=== PATIENT | male | born 1960 | race Caucasian/White ===

== ENCOUNTER 2020-02-24 21:18 | Inpatient (IN) | payer OTHER ==
[~2020-02-24] VITALS: Ht 177.8 cm; Wt 80.2 kg
[2020-02-24] MEDS ORDERED: LISI10TA15 PO (22:00)
[2020-02-24] MEDS ORDERED: OMEP40CA97 PO (22:00)
[2020-02-24] MEDS ORDERED: PROTPAK PO (22:00)
[2020-02-24] MEDS ORDERED: LEVOFLOXACIN (22:00)
[2020-02-24 22:05] LABS: BASO # 0.1 10^3/uL (0.0-0.2); BASO % 0.6 % (0.0-1.0); EOS # 0.2 10^3/uL (0.0-0.5); EOS % 1.8 % (0.0-3.0); HEMATOCRIT 58.1 % (42.0-52.0); HEMOGLOBIN 19.2 g/dl (13.5-17.5); LYMPH # 2.3 10^3/uL (1.5-5.0); LYMPH % 17.3 % (24.0-44.0); MEAN CORPUSCULAR VOLUME 84.8 fl (80.0-96.0); MONO % 7.7 % (0.0-5.0); NEUTROPHILS # 9.2 10^3/uL (1.5-8.5); NEUTROPHILS % 70.9 % (36.0-66.0); PLATELET COUNT, AUTOMATED 324 10^3/uL (150-450); RED BLOOD COUNT 6.85 10^6/uL (4.30-6.10)
[2020-02-24] MEDS ORDERED: NS 1,000 ML IV ONE (22:45)
[2020-02-24 22:46] LABS: CALCIUM LEVEL 8.8 MG/DL (8.5-10.1); CK-MB VALUE MASS 2.4 NG/ML (<3.6); CREATININE FOR GFR 1.95 MG/DL (0.70-1.30); GLOMERULAR FILTRATION RATE 37.7 (>56); MB/CK RELATIVE INDEX 4.71 (< OR =4); POTASSIUM SERUM 4.4 MEQ/L (3.5-5.1); THYROID STIMULATING HORMONE 3.42 uIU/ML (0.358-3.740); TROPONIN I 0.03 NG/ML (< 0.10)
--- NOTE | 2020-02-25 00:58 | REPVR ---
PROCEDURE INFORMATION: Exam: CT Abdomen And Pelvis Without Contrast Exam date and time: 02/25/2020 12:20 AM Age: 59 years old Clinical indication: Abdominal pain; Generalized; Additional info: Dx of pyelo TECHNIQUE: Imaging protocol: Computed tomography of the abdomen and pelvis without contrast. Radiation optimization: All CT scans at this facility use at least one of these dose optimization techniques: automated exposure control; mA and/or kV adjustment per patient size (includes targeted exams where dose is matched to clinical indication); or iterative reconstruction. COMPARISON: No relevant prior studies available. FINDINGS: Lungs: Lung nodule in the lateral basal right lower lobe measuring 4 mm. (Series 201, image 2). Lung nodule in the lateral basal left lower lobe measuring 5 mm. Series 201, image 2. Lung nodule in the lateral basal left lower lobe measuring 5 mm. (Series 201, image 13). Liver: Normal. No mass. Gallbladder and bile ducts: Status post cholecystectomy. No biliary ductal dilatation. Pancreas: Normal. No ductal dilation. Spleen: Normal. No splenomegaly. Adrenal glands: Right adrenal gland is unremarkable. Low-density nodule in the left adrenal gland measuring 1.4 x 1.3 cm. Kidneys and ureters: Normal. No hydronephrosis. No renal stones. Stomach and bowel: Moderate stool in the colon. No abnormal bowel dilatation. No abnormal bowel wall thickening. Negative for colonic diverticulitis. Appendix: Appendix is normal. Intraperitoneal space: Unremarkable. No free air. No significant fluid collection. Vasculature: Mild calcified atherosclerotic disease. No aortic aneurysm. Lymph nodes: No enlarged lymph nodes. Multiple small mesenteric nodes. Urinary bladder: Unremarkable as visualized. Reproductive: Prostate is normal in size. Bones/joints: No acute fracture. Moderate degenerative spine. Soft tissues: Unremarkable. IMPRESSION: 1. Kidneys are unremarkable. 2. Multiple lung nodules. For patients at low risk (minimal or absent history of smoking and of other known risk factors), no routine follow-up is indicated. For patients at high risk (history of smoking or of other known risk factors), consider optional CT Chest at 12 months. (Reference: Curt) 3. Low-density nodule in the left adrenal gland. Consistent with adenoma. No follow-up is necessary. COMMENTS: Consistent with the [employer]'s Incidental Findings Committee white paper (J Am Adriana Radiol 2017): For any incidental adrenal lesion greater than 1 cm but less than 4 cm classified in this report as benign, likely benign, or containing fat (including classification as an adenoma or myelolipoma), no follow-up imaging is recommended per consensus recommendations based on imaging criteria. Further lab evaluation could be pursued if warranted based on clinical findings. REFERENCES: Curt Mac, et al. Guidelines for Management of Incidental Pulmonary Nodules Detected on CT Images: From the Fleischner Society 2017. Radiology. 2017;284(1):228-243. Electronically signed by: Hyun Garcia On 02/25/2020 00:58:17 AM
[2020-02-25] MEDS ORDERED: NS 1,000 ML IV ONE ×2 (01:45→10:00)
[2020-02-25] MEDS ORDERED: MOM 30ML SUSPENSION UDC PO PRN (02:30)
[2020-02-25] MEDS ORDERED: ACETAMINOPHEN TAB 650MG DOSE (2X325MG) PO PRN (02:30)
[2020-02-25] MEDS ORDERED: PANT20TA6 PO (02:31)
[2020-02-25] MEDS ORDERED: LISI20TA35 PO (02:31)
[2020-02-25] MEDS ORDERED: LIDO1PAD TOP (02:38)
[2020-02-25] MEDS ORDERED: LEVO750T13 PO (02:38)
[2020-02-25] MEDS ORDERED: NICOTINE 21MG/24HR 1 EA TRANSDERMAL TD ONE (02:45)
[2020-02-25] MEDS ORDERED: hydroCHLOROthiazide 12.5 MG CAPSULE PO SCH (02:46)
--- NOTE | 2020-02-25 02:49 | HPEPDOC ---
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 This prompted his boom supervisor to ask him to come to the ED. In the ED when I saw him his symptoms had resolved. He tells me he had not felt like he was about to pass out like this in the past. He endorses to me that on February 19 he was seen at [facility] where he was diagnosed with pyelonephritis and was discharged home from the ED with by mouth Levaquin today is day #5 of treatment. At that time he was feeling feverish at home with some chills and had exquisite CVA tenderness. He feels that his fevers have resolved but she'll remain in his CVA tenderness has improved with time. He tries to stay hydrated but also drinks coffee daily. In the ED orthostats were positive. Received 2 L IV fluid bolus. PAST MEDICAL HISTORY: HTN PAST SURGICAL HISTORY: Laparoscopic cholecystectomy 2013 SOCIAL HISTORY: Denies alcohol use Daily smoker 1 pack per day for about 40 years Denies illicit drug use FAMILY HISTORY: Parents also required laparoscopic cholecystectomy around the same age as him. Rest reviewed and noncontributory ALLERGIES: Please see below. REVIEW OF SYSTEMS: Constitutional: No sweating or weight loss Eyes: No eye pain or acute blurred vision HENT: Developed a headache this evening Cadiovascular: No Chest pain or palpitations Pulm: No SOB or cough Gastrointestinal: Was feeling nauseous prior but did not vomit this has now reso lved, no abdominal pain. Genitourinary: No dysuria or hematuria Musculoskeletal: Still having CVA discomfort. No joint pain Skin: No rash or jaundice Neurological: Feeling lightheaded HOME MEDICATIONS: Please see below. PHYSICAL EXAMINATION: Constitutional: Awake and alert, in no apparent distress ENT: Sclera are clear. Mucosa is moist. Respiratory: Lungs CTA bilaterally. No respiratory distress. No use of accessory muscles. Cardiovascular: RRR S1 and S2 are normal, no murmur Gastrointestinal: Abdomen is soft, non distended, non tender, BS present. Musculoskeletal: No edema. No joint deformities. RUE 5/5, LUE 5/5, BLE 5/5. CVA tenderness R>L Neurologic: No focal neurological deficit. Mental Status: A&O x3, normal affect Skin: Warm, dry LABORATORY DATA: See below. IMAGING: CT Abdomen And Pelvis Without Contrast Exam date and time: 02/25/2020 12:20 AM IMPRESSION: 1. Kidneys are unremarkable. 2. Multiple lung nodules. For patients at low risk (minimal or absent history of smoking and of other known risk factors), no routine follow-up is indicated. For patients at high risk (history of smoking or of other known risk factors), consider optional CT Chest at 12 months. (Reference: Curt) 3. Low-density nodule in the left adrenal gland. Consistent with adenoma. No follow-up is necessary. MICROBIOLOGY: Please see below. Urine culture pending. Blood culture ordered. ASSESSMENT/PLAN 59M PMHx HTN, serious presyncope at work likely due to dehydration. Has recent diagnosis of pyelonephritis did not complete treatment. Found to have KYLIE. Admitted to medical unit for further management. # Pyelonephritis: Leukocytosis plus CVA tenderness and hx fevers at home. Fu BCx, UCx. CT abdo/pelvis reviewed. IVFs. IV Ceftriaxone. # KYLIE: likely pre-renal from dehydration from illness. Fu FeNa. IVFs. Avoid nephrotoxins. Trend BMP. # Presyncope: I suspect this is from dehydration. Orthostats positive. IVFs. # HTN: Hold lisinopril given KYLIE. Continue HCTZ. Start amlodipine. Monitor and titrate # DVT prophylaxis: Heparin A Yousef Hospitalist Vital Signs Vital Signs Date Time Temp Pulse Resp B/P (MAP) Pulse Ox O2 Delivery O2 Flow Rate FiO2 02/25/20 01:11 75 97 02/25/20 01:03 14 Room Air 02/25/20 01:00 150/85 (106) 02/24/20 21:19 96.7 Laboratory Data Labs 24H Laboratory Tests 2 02/24/20 21:44: Immature Granulocyte % (Auto) 1.7, Neutrophils (%) (Auto) 70.9H, Lymphocytes (%) (Auto) 17.3L, Monocytes (%) (Auto) 7.7H, Eosinophils (%) (Auto) 1.8, Basophils (%) (Auto) 0.6, Neutrophils # (Auto) 9.2H, Lymphocytes # (Auto) 2.3, Monocytes # (Auto) 1.0H, Eosinophils # (Auto) 0.2, Basophils # (Auto) 0.1, Nucleated Red Blood Cells % (auto) 0.0, Anion Gap 9, Glomerular Filtration Rate 37.7L, Calcium Level 8.8, Total Creatine Kinase 51, Creatine Kinase MB 2.4, Creatine Kinase MB Relative Index 4.71H, Troponin I 0.03, Thyroid Stimulating Hormone (TSH) 3.420 02/24/20 23:57: Urine Color KALEN, Urine Appearance CLOUDYH, Urine pH 5.0, Urine Specific [place] 1.024, Urine Protein 2+H, Urine Glucose (UA) NEGATIVE, Urine Ketones TRACEH, Urine Blood NEGATIVE, Urine Nitrite NEGATIVE, Urine Bilirubin 1+H, Urine Urobilinogen 4.0H, Urine Leukocyte Esterase 1+H, Urine WBC (Auto) 15H, Urine RBC (Auto) 2, Urine Hyaline Casts (Auto) 115, Urine Bacteria (Auto) NEGATIVE, Urine Squamous Epithelial Cells 2, Urine Mucus (Auto) SMALL, Urine Sperm (Auto) CBC/BMP Laboratory Tests 02/24/20 21:44 Microbiology Microbiology 02/24/20 Urine Culture, Received Pending Home Medications Scheduled Lisinopril/Hydrochlorothiazide (Lisinopril-Hctz 20-12.5 mg Tab) 1 Each Tablet, 1 TAB PO DAILY Pantoprazole Sodium (Pantoprazole Sodium) 20 Mg Tablet.dr, 20 MG PO DAILY Allergies Coded Allergies: iodine (Verified Allergy, Severe, 02/24/20) shellfish derived (Verified Allergy, Severe, 02/24/20) A-FIB/CHADSVASC A-FIB History Current/History of A-Fib/PAF?: No ALEXANDER CUTLER MD Feb 25, 2020 02:49
[2020-02-25] MEDS: amLODIPine 5 MG TAB PO SCH (04:34)
[2020-02-25] MEDS: NS 1,000 ML IV SCH ×3 (04:34→18:12)
[2020-02-25] MEDS: cefTRIAXone SOD 1 GM in D5W MINI-BAG PLUS 50 ML IV SCH (04:35)
[2020-02-25 06:27] LABS: HEMATOCRIT 50.6 % (42.0-52.0); MEAN CORPUSCULAR HEMOGLOBIN 29.2 pg (27.0-33.0); MEAN CORPUSCULAR HGB CONC 33.8 g/dl (32.0-36.5); MEAN CORPUSCULAR VOLUME 86.5 fl (80.0-96.0); PLATELET COUNT, AUTOMATED 244 10^3/uL (150-450); RED BLOOD COUNT 5.85 10^6/uL (4.30-6.10); WHITE BLOOD COUNT 9.9 10^3/uL (4.0-10.0)
[2020-02-25 06:35] LABS: HEMOGLOBIN 17.1 g/dl (13.5-17.5)
[2020-02-25 06:56] LABS: ALBUMIN 3.2 GM/DL (3.2-5.2); BILIRUBIN,TOTAL 0.6 MG/DL (0.2-1.0); CALCIUM LEVEL 8.1 MG/DL (8.5-10.1); CREATININE FOR GFR 1.31 MG/DL (0.70-1.30); GLOMERULAR FILTRATION RATE 59.6 (>56); POTASSIUM SERUM 4.1 MEQ/L (3.5-5.1); TOTAL PROTEIN 5.9 GM/DL (6.4-8.2)
[2020-02-25] MEDS ORDERED: FLUBLOK(EGG FREE)(QUAD)INFLUENZA VACC 0.5ML SYRINGE 18YRS & OLDER IM ONE (07:15)
[2020-02-25 09:19] VITALS: BP 134/90
[2020-02-25] MEDS: HEPARIN SOD (PORCINE) 5000UNITS/ML 1ML VIAL/SYRINGE SC SCH ×2 (10:21→20:52)
[2020-02-25 12:00] VITALS: BP 127/75
[2020-02-25 16:00] VITALS: BP_SYST 126; BP_SYST 150; BP_SYST 158; BP_DIAS 83; BP_DIAS 89; BP_DIAS 97
[2020-02-25 16:23] LABS: HEMATOCRIT 48.5 % (42.0-52.0); HEMOGLOBIN 16.6 g/dl (13.5-17.5); MEAN CORPUSCULAR HEMOGLOBIN 29.7 pg (27.0-33.0); MEAN CORPUSCULAR HGB CONC 34.2 g/dl (32.0-36.5); MEAN CORPUSCULAR VOLUME 86.8 fl (80.0-96.0); PLATELET COUNT, AUTOMATED 268 10^3/uL (150-450); RED BLOOD COUNT 5.59 10^6/uL (4.30-6.10); WHITE BLOOD COUNT 8.6 10^3/uL (4.0-10.0)
[2020-02-25 16:45] LABS: BLOOD UREA NITROGEN 20 MG/DL (7-18); CALCIUM LEVEL 7.9 MG/DL (8.5-10.1); CARBON DIOXIDE LEVEL 25 MEQ/L (21-32); CHLORIDE LEVEL 111 MEQ/L (98-107); GLOMERULAR FILTRATION RATE > 60.0 (>56); GLUCOSE, FASTING 95 MG/DL (70-100); MAGNESIUM LEVEL 1.7 MG/DL (1.8-2.4); POTASSIUM SERUM 4.2 MEQ/L (3.5-5.1); SODIUM LEVEL 140 MEQ/L (136-145)
--- NOTE | 2020-02-25 18:44 | IPNPDOC ---
Text Note Date of Service The patient was seen on 02/25/20. 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 Patient reported that he felt dizzy, nauseous, lightheaded and was excessively sweating. Patient reported he essentially blacked out. His blood pressure was checked while at [facility] and was found to be hypotensive, 100s. Patient reported that on 02/19 he had visited [facility] where he was diagnosed with right-sided pyelonephritis and was prescribed Levaquin. Of note, patient has reported consuming 2-3 cups of coffee daily. In the e mergency room, patient was found to have positive orthostatic hypotension and had been started on IV fluid hydration. Patient was seen and examined at the bedside. Patient denies any nausea, vomiting, chest pain, shortness of breath, palpitations, nausea, vomiting, abdominal pain or diarrhea. Denies any urinary discomfort. Objective: Vitals (See below) General: Lying in bed, appears comfortable, AAOx3 HEENT: NC, AT CVS: RRR, +S1S2 Lungs: Fair air entry b/l, no appreciable wheezing, rhonchi or rales Abdomen: Soft, ND, NT Extremities: No evidence of edema, - Calf tenderness Assessment and plan: Pre-syncope - likely 2/2 orthostatic hypotension - Patient was found to have positive orthostatics in the emergency room - Blood work had revealed hemoconcentration - Orthostatic hypotension has resolved - Will continue with IV fluid hydration Acute kidney injury - likely 2/2 pre-renal etiology - Creatinine on admission of 1.95; continues to down trend - Will avoid nephrotoxic medications - Continue with IV fluid hydration s/p Polycythemia - likely 2/2 hemoconcentration - c/w IV fluid hydration Hypomagnesemia - Will supplement via IV Pyelonephritis - s/p Leukocytosis - [facility]; urine culture on 02/19, did not have any growth - Blood cultures 02/24 and - Urine analysis doesn't appear to be consistent with infection; Urine culture 02/23 pending - CT abdomen / pelvis 02/24: 1. Kidneys are unremarkable. 2. Multiple lung nodules. For patients at low risk (minimal or absent history of smoking and of other known risk factors), no routine follow-up is indicated. For patients at high risk (history of smoking or of other known risk factors), consider optional CT Chest at 12 months. (Reference: Curt) 3. Low-density nodule in the left adrenal gland. Consistent with adenoma. No follow-up is necessary. - Continue with ceftriaxone at this time Questionable kidney/adrenal lesion - Patient reports that he was scheduled to receive a PET scan and biopsy on 02/25 for further evaluation at [facility] HTN - Will DC HCTZ - Continue to hold Lisinopril - c/w Amlodipine DVT prophylaxis - c/w Heparin VS,Fishbone, I+O VS, Fishbone, I+O Laboratory Tests 02/24/20 21:44 02/25/20 05:54 02/25/20 16:08 Vital Signs Date Time Temp Pulse Resp B/P (MAP) Pulse Ox O2 Delivery O2 Flow Rate FiO2 02/25/20 16:00 75 126/83 (97) 76 158/97 (117) 78 150/89 (109) 02/25/20 16:00 98.8 18 98 02/25/20 12:00 Room Air I&O- Last 24 Hours up to 6 AM 02/25/20 06:00 Intake Total 2000 ml Balance 2000 ml FOSTER BULTER MD Feb 25, 2020 18:44
[2020-02-25] MEDS ORDERED: MAG SULF 1GM/100ML (MAG RUN) 1 GM in IV 1 EA IV ONE (18:45)
[2020-02-25 19:28] VITALS: BP 141/94
[2020-02-26] MEDS: cefTRIAXone SOD 1 GM in D5W MINI-BAG PLUS 50 ML IV SCH (03:50)
[2020-02-26 04:00] VITALS: BP 147/84
[2020-02-26] MEDS: NS 1,000 ML IV SCH (06:39)
[2020-02-26 07:40] LABS: BASO # 0.1 10^3/uL (0.0-0.2); BASO % 0.8 % (0.0-1.0); EOS # 0.7 10^3/uL (0.0-0.5); EOS % 8.1 % (0.0-3.0); HEMATOCRIT 45.7 % (42.0-52.0); LYMPH # 2.8 10^3/uL (1.5-5.0); LYMPH % 33.9 % (24.0-44.0); MEAN CORPUSCULAR HEMOGLOBIN 28.2 pg (27.0-33.0); MEAN CORPUSCULAR HGB CONC 32.8 g/dl (32.0-36.5); MEAN CORPUSCULAR VOLUME 85.9 fl (80.0-96.0); MONO # 0.8 10^3/uL (0.0-0.8); MONO % 9.8 % (0.0-5.0); NEUTROPHILS # 3.9 10^3/uL (1.5-8.5); PLATELET COUNT, AUTOMATED 224 10^3/uL (150-450); RED BLOOD COUNT 5.32 10^6/uL (4.30-6.10); WHITE BLOOD COUNT 8.4 10^3/uL (4.0-10.0)
[2020-02-26 08:00] VITALS: BP 130/90
[2020-02-26 08:03] LABS: BLOOD UREA NITROGEN 15 MG/DL (7-18); CALCIUM LEVEL 8.1 MG/DL (8.5-10.1); CARBON DIOXIDE LEVEL 25 MEQ/L (21-32); CHLORIDE LEVEL 112 MEQ/L (98-107); CREATININE FOR GFR 0.85 MG/DL (0.70-1.30); GLOMERULAR FILTRATION RATE > 60.0 (>56); GLUCOSE, FASTING 91 MG/DL (70-100); MAGNESIUM LEVEL 1.8 MG/DL (1.8-2.4); SODIUM LEVEL 142 MEQ/L (136-145)
--- NOTE | 2020-02-26 08:59 | ECGEPIP ---
[facility] - ED Test Date: 2020-02-24 Pat Name: ELEAZAR KUMAR Department: Room: [place] [address] Gender: Male Sas Bi Developer: JACK : 1960 Requested By: TRAE Ellington Order Number: [id number] Reading MD: Ledy Leavitt Measurements Intervals [place] Rate: 93 P: 64 TN: 131 QRS: 38 QRSD: 89 T: 54 QT: 342 QTc: 427 Interpretive Statements SINUS RHYTHM No prior Electronically Signed on 02-26-2020 8:59:26 EST by Ledy Leavitt
[2020-02-26] MEDS ORDERED: FLUBLOK(EGG FREE)(QUAD)INFLUENZA VACC 0.5ML SYRINGE 18YRS & OLDER IM ONE (09:00)
[2020-02-26 09:23] VITALS: BP 130/90
[2020-02-26] MEDS: amLODIPine 5 MG TAB PO SCH (09:23)
[2020-02-26] MEDS: HEPARIN SOD (PORCINE) 5000UNITS/ML 1ML VIAL/SYRINGE SC SCH (09:24)
[2020-02-26] MEDS ORDERED: CEFD1CAP8 PO (10:00)
[2020-02-26] MEDS ORDERED: AMLO1TAB24 PO (10:00)
--- NOTE | 2020-02-26 15:26 | DS.PDOC ---
Discharge Summary General Date of Admission Feb 25, 2020 at 02:22 Date of Discharge 02/26/2020 Discharge Summary PROCEDURES PERFORMED DURING STAY: [None]. 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 Patient reported that he felt dizzy, nauseous, lightheaded and was excessively sweating. Patient reported he essentially blacked out. His blood pressure was checked while at [facility] and was found to be hypotensive, 100s. Patient reported that on 02/19 he had visited [facility] where he was diagnosed with right-sided pyelonephritis and was prescribed Levaquin. Of note, patient has reported consuming 2-3 cups of coffee daily. In the emergency room, patient was found to have positive orthostatic hypotension and had been started on IV fluid hydration. HOSPITAL COURSE: Pre-syncope - likely 2/2 orthostatic hypotension - Patient was found to have positive orthostatics in the ER - Blood work had revealed hemoconcentration - now normalized - Orthostatic hypotension has resolved - Patient has been advised to remain abstinent of caffeine and his BP medicatio ns have been adjusted - Will DC IV fluid hydration s/p Acute kidney injury - likely 2/2 pre-renal etiology - Creatinine on admission of 1.95; - Has trended down to normal - Will avoid nephrotoxic medications - Will DC IV fluid hydration s/p Polycythemia - likely 2/2 hemoconcentration - c/w IV fluid hydration s/p Hypomagnesemia Suspected Pyelonephritis - s/p Leukocytosis - Discussed with [facility]; urine culture on 02/19, did not have any growth - Blood cultures 02/24 and - Urine analysis doesn't appear to be consistent with infection; Urine culture 02/23: No growth - CT abdomen / pelvis 02/24: 1. Kidneys are unremarkable. 2. Multiple lung nodules. For patients at low risk (minimal or absent history of smoking and of other known risk factors), no routine follow-up is indicated. For patients at high risk (history of smoking or of other known risk factors), consider optional CT Chest at 12 months. (Reference: Curt) 3. Low-density nodule in the left adrenal gland. Consistent with adenoma. No follow-up is necessary. - Will c/w Cefdinir; Will DC ceftriaxone - will complete antibiotic course as an outpatient Questionable kidney/adrenal lesion - Patient reports that he was scheduled to receive a PET scan and biopsy on 02/25 for further evaluation at [facility] - Patient will have his procedure rescheduled HTN - Will DC HCTZ and Lisinopril on discharge - c/w Amlodipine DVT prophylaxis - c/w Heparin DISCHARGE MEDICATIONS: Please see below. ALLERGIES: Please see below. PHYSICAL EXAMINATION ON DISCHARGE: Vitals (See below) General: Lying in bed, appears comfortable, AAOx3 HEENT: NC, AT CVS: RRR, +S1S2 Lungs: Fair air entry b/l, no appreciable wheezing, rhonchi or rales Abdomen: Soft, ND, NT Extremities: No evidence of edema, - Calf tenderness LABORATORY DATA: Please see below. ACTIVITY: [As tolerated]. DISCHARGE PLAN: Follow-up with wi care provider within the next 7 days Please follow up with [facility] for scheduled PET scan and biopsy Remain compliant with treatment plan and medications Return to the ER if you experience any problems DISPOSITION: Home DISCHARGE CONDITION: [Stable]. TIME SPENT ON DISCHARGE: 35 minutes. Vital Signs/I&Os Vital Signs Date Time Temp Pulse Resp B/P (MAP) Pulse Ox O2 Delivery O2 Flow Rate FiO2 02/26/20 09:23 76 130/90 02/26/20 08:00 97.3 20 95 Room Air I&O- Last 24 Hours up to 6 AM 02/26/20 06:00 Intake Total 2130 ml Output Total 400 ml Balance 1730 ml Laboratory Data Labs 24H Laboratory Tests 2 02/25/20 16:08: Nucleated Red Blood Cells % (auto) 0.0, Anion Gap 4L, Glomerular Filtration Rate > 60.0, Calcium Level 7.9L, Magnesium Level 1.7L 02/26/20 07:31: Nucleated Red Blood Cells % (auto) 0.0, Anion Gap 5L, Glomerular Filtration Rate > 60.0, Calcium Level 8.1L, Magnesium Level 1.8, Immature Granulocyte % (Auto) 0.4, Neutrophils (%) (Auto) 47.0, Lymphocytes (%) (Auto) 33.9, Monocytes (%) (Auto) 9.8H, Eosinophils (%) (Auto) 8.1H, Basophils (%) (Auto) 0.8, Neutrophils # (Auto) 3.9, Lymphocytes # (Auto) 2.8, Monocytes # (Auto) 0.8, Eosinophils # (Auto) 0.7H, Basophils # (Auto) 0.1 02/26/20 13:10: Urine Color YELLOW, Urine Appearance CLEAR, Urine pH 6.0, Urine Specific [place] 1.013, Urine Protein NEGATIVE, Urine Glucose (UA) NEGATIVE, Urine Ketones NEGATIVE, Urine Blood NEGATIVE, Urine Nitrite NEGATIVE, Urine Bilirubin NEGATIVE, Urine Urobilinogen 0.2, Urine Leukocyte Esterase NEGATIVE, Urine WBC (Auto) 2, Urine RBC (Auto) 0, Urine Hyaline Casts (Auto) 0, Urine Bacteria (Auto) NEGATIVE, Urine Squamous Epithelial Cells 0, Urine Mucus (Auto) SMALL, Urine Sperm (Auto) CBC/BMP Laboratory Tests 02/25/20 16:08 02/26/20 07:31 Microbiology Microbiology 02/25/20 Blood Culture - Preliminary, Resulted No growth after 24 hours . All specim... 02/25/20 Blood Culture - Preliminary, Resulted No growth after 24 hours . All specim... 02/24/20 Urine Culture - Final, Complete Discharge Medications Scheduled Amlodipine Besylate (Amlodipine Besylate) 5 Mg Tablet, 5 MG PO DAILY Cefdinir (Cefdinir) 300 Mg Capsule, 1 CAP PO BID Lidocaine (Lidocaine) 5% Adh..patch, 1 PATCH TOP DAILY, (Reported) PLACES ON RIGHT SIDE OF BACK WHERE T12 AND L1 MEET Pantoprazole Sodium (Pantoprazole Sodium) 20 Mg Tablet.dr, 20 MG PO DAILY, (Reported) Allergies Coded Allergies: iodine (Verified Allergy, Severe, 02/24/20) shellfish derived (Verified Allergy, Severe, 02/24/20) FOSTER BUTLER MD Feb 26, 2020 15:26
== END 2020-02-26 15:50 | disposition home or self-care (01) | DRG 690 ==
LOC: M ED 21:18 → M ED INP 02-25 02:22 → ENRESERV 02-25 07:42 → M PCU 02-25 09:06
PROVIDERS: ADMIT Family Medicine; ATTEND Internal Medicine
DX: N10 Acute pyelonephritis (principal); N17.9 Acute kidney failure, unspecified; I95.1 Orthostatic hypotension; I10 Essential (primary) hypertension; E83.42 Hypomagnesemia; D75.1 Secondary polycythemia; Z79.899 Other long term (current) drug therapy; R91.8 Other nonspecific abnormal finding of lung field; Z88.8 Allergy status to other drugs, medicaments and biological substances; Z91.013 Allergy to seafood

== ENCOUNTER → 2020-03-15 | Outpatient (CLI) | payer SELFPAY ==
[~2020-03-15] MED LIST: AMLO1TAB24 PO; CEFD1CAP8 PO; LEVO750T13 PO; LEVOFLOXACIN; LIDO1PAD TOP; LISI10TA15 PO; LISI20TA35 PO; OMEP40CA97 PO; PANT20TA6 PO; PROTPAK PO
== END ==
LOC: M LABSMTC 14:25
PROVIDERS: ATTEND Pediatrics
DX: Z20.828 Contact with and (suspected) exposure to other viral communicable diseases (principal)

== ENCOUNTER → 2024-12-24 | Outpatient (RCR) ==
[~2024-12-24] MED LIST changes: -CEFD1CAP8 PO; +CEFD1CAP9 PO; +LEVO1TAB40 PO; -LEVO750T13 PO; -LISI10TA15 PO; +LISI10TA24 PO; +OMEP10CASR PO; +OMEP40CA4 PO; -OMEP40CA97 PO
== END ==
LOC: M EMPSKH 12-14 16:31
PROVIDERS: ATTEND Family Medicine
DX: Z20.828 Contact with and (suspected) exposure to other viral communicable diseases (principal)